=== PATIENT | female | born 1960 | race Caucasian/White ===

== ENCOUNTER 2023-02-09 22:05 | Emergency (ER) | payer OTHER ==
[2023-02-09] MEDS ORDERED: valACYclovir 500 MG TABLET PO STA (22:31)
[2023-02-09] MEDS ORDERED: predniSONE 20 MG TABLET PO STA (22:31)
[2023-02-09 22:33] VITALS: O2SAT 100
--- NOTE | 2023-02-09 22:35 | ED Physician Documentation ---
History of Present Illness - Stated complaint Stated Complaint: RT SIDE FACIAL DROOPING - Chief complaint Chief Complaint: General - History obtained from History obtained from: Patient - History of Present Illness Timing: Yesterday Pain level max: 6 Pain level now: 6 - Additonal information Additional information: Patient is a 62-year-old female who presents to the emergency department stating that she had drooping to the right side of the face that started yesterday has persisted today. She states she has no other numbness, tingling or symptoms. She states she does not feel like her right eye closes completely. Has never had similar symptoms previously. No headache. No trauma. No fevers. No rece nt illnesses. Review of Systems Constitutional: denies: Fever Respiratory: denies: Cough GI: denies: Nausea, Vomiting, Diarrhea Skin: denies: Rash Musculoskeletal: denies: Neck pain, Back pain Neurologic: denies: Headache PD PAST MEDICAL HISTORY - Past Medical History Past Medical History: No - Past Surgical History Past Surgical History: No - Present Medications Home Medications: Ambulatory Orders Medication Instructions Recorded Confirmed Valacyclovir HCl [Valtrex] 1,000 mg PO TID #21 tablet 02/09/23 predniSONE [Deltasone] 60 mg PO DAILY 7 Days #21 tablet 02/09/23 - Allergies Allergies/Adverse Reactions: Allergies Allergy/AdvReac Type Severity Reaction Status Date / Time No Known Drug Allergies Allergy Verified 02/09/23 22:32 - Living Situation Living Situation: reports: With family Living Arrangement: reports: At home PD ED PE NORMAL - Vitals Vital signs reviewed: Yes - General General: Alert and oriented X 3, No acute distress - HEENT HEENT: Moist mucous membranes - Neck Neck: Supple, no meningeal sign - Cardiac Cardiac: RRR - Respiratory Respiratory: No respiratory distress, Clear bilaterally - Derm Derm: Warm and dry - Neuro Neuro: Alert and oriented X 3, Other (Right-sided facial palsy, forehead is involved. Right-sided Andrade's phenomenon. Flattening of the nasolabial fold. 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 No indication for further workup at this time. We will place on Valtrex and prednisone. Utilize eyedrops for home. Have her follow-up with her PCP for further care. No evidence of stroke or central nervous system cause. Patient counseled regarding signs and symptoms for which I believe and urgent re-evaluation would be necessary. Patient with good understanding of and agreement to plan and is comfortable going home at this time This document was made in part using voice recognition software. While efforts are made to proofread this document, sound alike and grammatical errors may occur. 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 This is usually a self-limited illness that responds well to treatment if we start treatment within 48 hours. Your prescriptions were sent to [facility] in [place]. You need to ensure that you are using artificial tears on your right eye to help prevent any ulceration or drying of the eye. You should use lubricant eyedrops at night, you may need to tape your eyelid shut at night as well to prevent the eye from drying out. Please follow- up with your doctor for further care. Please return if you worsen. Forms: PCP List Discharge Date/Time: 02/09/23 23:06
[2023-02-09 23:18] VITALS: BP 125/71
== END 2023-02-09 23:06 | disposition home or self-care (01) ==
LOC: ED 22:05
DX: G51.0 Bell's palsy (principal)
CPT/HCPCS: 99282; 99283; A9270; J7512